=== PATIENT | female | born 1950 | race Caucasian/White ===

== ENCOUNTER 2019-12-29 16:11 | Emergency (ER) | payer MEDICARE, SELFPAY ==
[2019-12-29 16:13] VITALS: BP 133/82; PULSE 85; RESP 18; TEMP 36.2; O2SAT 100
--- NOTE | 2019-12-29 16:38 | ED.SKABFB ---
HPI - Skin/Abscess/Foreign Bdy General Chief complaint: Skin/Abscess/Foreign Body <Alicia Contreras PA-C - Last Filed: 12/29/19 16:48> Stated complaint: possible spider bite left ankle <RASHEED Espinal Last Filed: 12/29/19 16:48> Time Seen by Provider: 12/29/19 16:19 <RASHEED Espinal Last Filed: 12/29/19 16:48> Source: patient <RASHEED Espinal Last Filed: 12/29/19 16:48> Mode of arrival: ambulatory <RASHEED Espinal Last Filed: 12/29/19 16:48> Limitations: no limitations <RASHEED Espinal Last Filed: 12/29/19 16:48> History of Present Illness HPI narrative: This is a 69 year old female that presents to the ER for possible spider bite to the left ankle. Does not remember a bite to the area, but thinks that she has brown recluse spiders in her home. She is unsure of her last tetanus vaccine. Reports some bruising and scabbing to the area. No other known injury or trauma. Denies fever, vomiting, erythema, warmth or edema. <Alicia Contreras PA-C - Last Filed: 12/29/19 16:48> Related Data Home medications: Home Medications Medication Instructions Recorded Confirmed alprazolam 12/29/19 cholecalciferol (vitamin D3) 12/29/19 dulaglutide [Trulicity] mg SUBCUT 12/29/19 fluoxetine mg 12/29/19 glipizide-metformin tablet 12/29/19 rosuvastatin mg 12/29/19 <RASHEED Espinal Last Filed: 12/29/19 16:48> Allergies/Adverse reactions: Allergies Allergy/AdvReac Type Severity Reaction Status Date / Time No Known Allergies Allergy Verified 12/29/19 16:16 <RASHEED Espinal Last Filed: 12/29/19 16:48> Review of Systems Review of Systems: Narrative: CONSTITUTIONAL: Denies fever SKIN: Denies rash MUSCULOSKELETAL: Denies joint pain NEUROLOGIC: Denies numbness <Alicia Contreras PA-C - Last Filed: 12/29/19 16:48> All systems reviewed & are unremarkable except as noted in HPI and below <Alicia Contreras PA-C - Last Filed: 12/29/19 16:48> PMFSH Past Medical History Medical History: Medical History (Updated 12/29/19 @ 16:47 by Alicia Contreras PA-C) History of depression History of hyperlipidemia <Alicia Contreras PA-C - Last Filed: 12/29/19 16:48> Family History Family History: Family History (Updated 12/16/18 @ 11:12 by DOCTOR UNKNOWN) Sibling Diabetes mellitus Grandparent Diabetes mellitus Cerebrovascular accident Mother Hypertension Family history of dementia Father Cerebrovascular accident Family history of Alzheimer's disease <Alicia Contreras PA-C - Last Filed: 12/29/19 16:48> Social History Social History: Social History Smoking status: Never smoker Alcohol intake: never Gender identity (if verbalized by the patient): Female <Alicia Contreras PA-C - Last Filed: 12/29/19 16:48> Exam Narrative: Exam Narrative: GENERAL: Well-appearing, well-nourished, and in no acute distress. HEAD: Normocephalic, atraumatic. EYES: EOMI. EXTREMITIES: Normal range of motion of the left ankle without pain. No edema, erythema or warmth. Two small (0.5cm) scabs to the left lateral ankle with mild surrounding bruising SKIN: Warm, dry, no rash. NEURO: No focal deficits. Alert and oriented x3. PSYCH: Normal mood and affect <Alicia Contreras PA-C - Last Filed: 12/29/19 16:48> Course VASCULAR SONOGRAPHER/PA Physician Supervision Attestation for Alicia Contreras. Saw the patient [id number]. He was with her sister. She complains of bilateral breast redness and nipple tenderness since September. She has been breast-feeding her 8-month-old child. The pain became so severe that she switched to pumping, but even that was too painful. The last 2 days she has had fever chills and vomiting. Physical exam both breasts have a 4 inch diameter [place] around the nipples, with raised edge, and scant bleeding and discharge. Suspect this is erysipelas, and will need IV antibiotics for resolution. She understands t
== END 2019-12-29 17:13 | disposition home or self-care (01) ==
PROVIDERS: Emergency Provider Emergency Medicine; PCP Family Medicine
DX: S90.562A Insect bite (nonvenomous), left ankle, initial encounter (principal); W57.XXXA Bitten or stung by nonvenomous insect and other nonvenomous arthropods, initial encounter
CPT/HCPCS: 99281